=== PATIENT | male | born 1965 | race Caucasian/White ===

== ENCOUNTER 2019-03-11 12:59 | Emergency (ER) | payer MEDICAID ==
[2019-03-11 13:09] VITALS: BP 105/72; PULSE 116; RESP 20; TEMP 98.9; O2SAT 96
[2019-03-11] MEDS ORDERED: Tdap Vaccine 0.5 ml Vial (10-64 yrs) IM ONE ×2 (13:29→13:39)
[2019-03-11] MEDS ORDERED: Bacitracin 500 Units/gm Oint Foilpak UD TOP ONE (13:42)
--- NOTE | 2019-03-11 13:42 | C.PDOC ---
History Of Present Illness 53-year-old male presents to the ED for evaluation of right cheek injury sustained prior to arrival. Patient states he was working on a ladder when he accidentally lost balance and fell, hitting his cheek against a nail on a nearby wall. Patient is unsure of his tetanus immunization status, and denies LOC, nausea, vomiting, extremity numbness/weakness, or any other injuries at this time. Time Seen by Provider: 03/11/19 13:26 Chief Complaint (Nursing): Abnormal Skin Integrity History Per: Patient History/Exam Limitations: no limitations Onset/Duration Of Symptoms: Hrs Current Symptoms Are (Timing): Still Present Location Of Injury: Right: Face (cheek ) Additional History Per: Patient Past Medical History Reviewed: Historical Data, Nursing Documentation, Vital Signs Vital Signs: Last Vital Signs Temp 98.9 F 03/11/19 13:08 Pulse 116 H 03/11/19 13:08 Resp 20 03/11/19 13:08 BP 105/72 03/11/19 13:08 Pulse Ox 96 03/11/19 13:08 Primary Care Provider: Non [facility] Provider, - Medical History PMH: No Chronic Diseases Surgical History: No Surg Hx Family History: States: Unknown Family Hx - Social History Hx Alcohol Use: No Hx Substance Use: No Review Of Systems Gastrointestinal: Negative for: Nausea, Vomiting Skin: Positive for: Other (right cheek injury ) Neurological: Negative for: Weakness, Numbness, Other (LOC ) Physical Exam - Physical Exam Appears: Non-toxic, No Acute Distress Skin: Normal Color, Warm, Dry Head: Laceration (irregular, 1.5cm laceration to right cheek with surrounding edema. no active bleeding ) Eye(s): bilateral: Normal Inspection, PERRL, EOMI Ear(s): Bilateral: Normal Nose: Normal, No Epistaxis, No Deformity, No Tenderness, No Septal Hematoma Oral Mucosa: Moist Neck: Normal ROM, No Midline Cervical Tenderness, No Paracervical Tenderness, Supple Chest: Symmetrical, No Deformity, No Tenderness Cardiovascular: Rhythm Regular, No Murmur Respiratory: Normal Breath Sounds, No Rales, No Rhonchi, No Wheezing Gastrointestinal/Abdominal: Soft, No Tenderness, No Guarding, No Rebound Back: No Vertebral Tenderness, No Paraspinal Tenderness Extremity: Normal ROM, No Tenderness, Capillary Refill (less than 2 seconds ), No Deformity, No Swelling Neurological/Psych: Oriented x3, Normal Speech, Normal Cognition, Normal Motor, Normal Sensation Gait: Steady ED Course And Treatment O2 Sat by Pulse Oximetry: 96 (on RA) Pulse Ox Interpretation: Normal Laceration - Laceration Repair right cheek Wound Length (In cm): 1.5 Description Of Wound: Irregular Wound Cleansed With: Betadine, Sterile Saline Wound Examination: Irrigated With Saline, No FB With Wound Exploration, No Tendon Injury With Wound Exploration Wound Closure: Skin Glue Wound Complexity: Simple Medical Decision Making Medical Decision Making: Impression: 53 year old male with right cheek injury s/p fall Plan: * 1.5cm irregular laceration to right cheek. Wound irrigated with normal saline and explored. No FB seen. No tendon injury. Area cleansed with betadine and sealed with SurgiSeal skin adhesive. Patient tolerated well with minimal bleeding. Bacitracin TOP and Tetanus IM administered. On reassessment, patient is resting comfortably, showing no signs of distress and is ambulatory in the ED with a steady gait. Patient is stable for discharge with wound care instructions. Disposition Counseled Patient/Family Regarding: Diagnosis, Need For Followup, Rx Given - Disposition Referrals: [facility] [Outside] Disposition: HOME/ ROUTINE Disposition Time: 13:42 Condition: IMPROVED Additional Instructions: keep wound clean and dry apply bacitracin twice a day follow up with pmd in 1-2 days to assess wound return to ED if you develop infection at the site Prescriptions: Bacitracin OINT 1 applic TP BID 7 Days #1 tube Instructions: Laceration Repair With Glue (DC), Wound Care (DC) Forms: [employer] (Indonesian) - Clinical Impression Clinical Impression: Laceration of right cheek - 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 - Scribe Statement The provider has reviewed the documentation as recorded by the Scribe (Laura Bravo) All medical record entries made by the Scribe were at my direction and personally dictated by me. I have reviewed the chart and agree that the record accurately reflects my personal performance of the history, physical exam, medical decision making, and the department course for this patient. I have also personally directed, reviewed, and agree with the discharge instructions and disposition.
[2019-03-11] MEDS ORDERED: Bacitracin 500 Units/gm Oint Foilpak UD ONE (13:54)
== END 2019-03-11 13:53 | disposition home or self-care (01) ==
LOC: C.ER 12:59
DX: S01.411A Laceration without foreign body of right cheek and temporomandibular area, initial encounter (principal); W11.XXXA Fall on and from ladder, initial encounter